=== PATIENT | female | born 1960 | race Caucasian/White ===

== ENCOUNTER 2017-11-30 13:14 | Inpatient (IN) | payer OTHER ==
--- NOTE | 2017-11-30 21:37 | HP ---
Admission [facility] Chief Complaint: alcohol rehabilitation Allergies/Adverse Reactions: Allergies Allergy/AdvReac Type Severity Reaction Status Date / Time oxycodone [Oxycodone] Allergy Verified 11/30/17 20:07 History of Present Illness: 57 yo female with hx of chronic alcohol dependence is here seeking rehabilitation. Reports was naltrexone, but reports the medication is not working and stopped taking the medication, last taken 11/28/17. As patient she was completed detox at [facility] 11/24 - 11/27/17. PMHX: depression and anxiety. Denies suicidal / homicidal ideation or hx of suicide attempt. Denies hx of seizures, reports frequent black outs with last episode 11/23/17. Longest period of sobriety 4 years. Exam Limitations: No Limitations - Ebola screening Have you traveled outside of the country in the last 21 days: No Have you had contact with anyone from an Ebola affected area: No Do you have a fever: No - Review of Systems Constitutional: Loss of Appetite, Changes in sleep EENT: reports: Blurred Vision (wears eyeglasses) Respiratory: reports: No Symptoms reported Cardiac: reports: No Symptoms Reported GI: reports: No Symptoms Reported : reports: No Symptoms Reported Musculoskeletal: reports: Joint Pain (AO right ankle) Integumentary: reports: No Symptoms Reported Neuro: reports: See HPI Endocrine: reports: Increased Thirst Hematology: reports: No Symptoms Reported Psychiatric: reports: Orientated x3, Depressed Other Systems: Reviewed and Negative Patient History - Patient Medical History Hx Anemia: No Hx Asthma: No Hx Chronic Obstructive Pulmonary Disease (COPD): No Hx Cancer: No Hx Cardiac Disorders: No Hx Congestive Heart Failure: No Hx Hypertension: No Hx Hypercholesterolemia: No Hx Pacemaker: No HX Cerebrovascular Accident: No Hx Seizures: No Hx Dementia: No Hx Diabetes: No Hx Gastrointestinal Disorders: No Hx Liver Disease: No Hx Genitourinary Disorders: No Hx Sexually Transmitted Disorders: No Hx Renal Disease (ESRD): No Hx Thyroid Disease: No Hx Human Immunodeficiency Virus (HIV): No (LAST 2012 NEGATIVE, declines testing at this time) Hx Hepatitis C: Yes (daignosed at age 21) Hx Depression: Yes Hx Suicide Attempt: No Hx Bipolar Disorder: No Hx Schizophrenia: No - Patient Surgical History Past Surgical History: Yes Hx Neurologic Surgery: No Hx Cataract Extraction: No Hx Cardiac Surgery: No Hx Lung Surgery: No Hx Breast Surgery: No Hx Breast Biopsy: No Hx Abdominal Surgery: No Hx Appendectomy: Yes (1985) Hx Cholecystectomy: No Hx Genitourinary Surgery: No Hx Section: No Hx Orthopedic Surgery: No Anesthesia Reaction: No (possible oxycontin allergies ) - PPD History Documented Results: Negative w/proof Date: 09/17/17 PPD to be Administered?: No - Reproductive History Patient is a Female of Child Bearing Age (11 -55 yrs old): No Last Menstrual Period: 01/20/11 - Smoking Cessation Smoking history: Never smoked Hx Chewing Tobacco Use: No Initiated information on smoking cessation: No - Substance & Tx. History Hx Alcohol Use: Yes Hx Substance Use: No Substance Use Type: Alcohol Hx Substance Use Treatment: Yes ([facility] 11/24 - 11/27/17.) - Substances Abused Alcohol Route: Oral Frequency: Daily Amount used: 15 shots vodka Age of first use: 8 Date of Last Use: 11/29/17 (reports drank 2 shots of vodka) Family Disease History - Family Disease History Family Disease History: Other: Father (alcoholic), Mother (depression , anxiety, ) Admission Physical Exam [facility] - Physical General Appearance: Yes: Disheveled, Anxious HEENTM: Yes: EOMI, Hearing grossly Normal, Normal ENT Inspection, Normocephalic , Normal Voice, RAMONITA, Pharynx Normal, Tm's normal Respiratory: Yes: Chest Non-Tender, Lungs Clear, Normal Breath Sounds, No Respiratory Distress, No Accessory Muscle Use Neck: Yes: Within Normal Limits Breast: Yes: Breast Exam Deferred Cardiology: Yes: Regular Rhythm, Regular Rate Abdominal: Yes: Normal Bowel Sounds, Non Tender, Flat, Soft Back: Yes: Normal Inspection Musculoskeletal: Yes: full range of Motion, Gait Steady, Pelvis Stable Extremities: Yes: Normal Capillary Refill, Normal Inspection, Normal Range of Motion, Non-Tender Neurological: Yes: 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, Fully Oriented, Alert, Motor Strength 5/5, Normal Response, Depressed Affect Integumentary: Yes: Normal Color, Dry, Warm Lymphatic: Yes: Within Normal Limits - Diagnostic (1) Alcohol dependence Current Visit: Yes Status: Acute Qualifiers: Substance use status: uncomplicated Qualified Code(s): F10.20 - Alcohol dependence, uncomplicated (2) Hepatitis C Current Visit: Yes Status: Chronic Qualifiers: Viral hepatitis chronicity: chronic (3) Depressed mood Current Visit: Yes Status: Acute [facility] Breath Alcohol Content Breath Alcohol Content: 0.017 Inpatient Rehab Admission - Initial Determination Are CD services needed?: Yes Free of communicable disease: Yes Not in need of hospitalization: Yes - Rehab Admission Criteria Previous failed treatment: Yes Poor recovery environment: Yes Comorbidities: Yes Lacks judgement: Yes Patient is meeting Inpatient Rehab admission criteria:: Yes
[2017-11-30] MEDS ORDERED: MAG HYDROX/AL HYDROX/SIMETH 30 ML UNIT-DOSE CUP PO PRN (21:42)
[2017-11-30] MEDS ORDERED: ACETAMINOPHEN 325 MG TABLET (FP) PO PRN (21:42)
[2017-11-30] MEDS ORDERED: MENTHOL/PHENOL 1 EACH UD MM PRN (21:42)
[2017-11-30] MEDS ORDERED: guaiFENesin/D-METHORPHAN HB 10 ML UNIT-DOSE CUPS PO PRN (21:42)
[2017-11-30] MEDS ORDERED: LOPERAMIDE HCL 2 MG CAPSULE PO PRN (21:42)
[2017-11-30] MEDS ORDERED: IBUPROFEN 400 MG TABLET (FP) PO PRN (21:42)
[2017-11-30] MEDS ORDERED: P-EPHED 60MG/TRIPROLIDI 2.5MG TABLET PO PRN (21:42)
[2017-11-30] MEDS: hydrOXYzine PAMOATE 50 MG CAPSULE (FP) PO PRN (23:08)
[2017-11-30] MEDS: MELATONIN 5 MG TABLETS PO PRN (23:08)
[2017-11-30] MEDS: THIAMINE HCL 100 MG TABLET (FP) PO SCH (23:08)
[2017-12-01] MEDS: PRENATAL VITAMINS W/ FOLIC ACID TABLET (FP) PO SCH (10:27)
[2017-12-01] MEDS: lamoTRIgine 100 MG TABLET (FP) PO SCH (12:41)
[2017-12-01] MEDS: NALTREXONE HCL 50 MG TABLET PO SCH (12:41)
[2017-12-01] MEDS: CITALOPRAM HYDROBROMIDE 20 MG TABLET (FP) PO SCH (12:42)
[2017-12-01 14:41] LABS: HEMATOCRIT 41.5 % (32.4-45.2); HEMOGLOBIN 14.1 GM/dL (10.7-15.3); MEAN PLT VOLUME 8.2 fl (7.5-11.1); PLATELET COUNT 286 K/MM3 (134-434); RBC 4.28 M/mm3 (3.60-5.2); RDW 14.5 % (11.6-15.6); WHITE BLOOD COUNT 6.4 K/mm3 (4.0-10.0)
[2017-12-01 14:53] LABS: CHLORIDE 103 mmol/L (98-107); POTASSIUM 4.2 mmol/L (3.5-5.1); SODIUM 137 mmol/L (136-145)
[2017-12-01 15:02] LABS: ALBUMIN 4.1 g/dl (3.4-5.0); ALK PHOS 91 U/L (45-117); ANION GAP 6 (8-16); BILIRUBIN,TOTAL 0.6 mg/dL (0.2-1.0); BLOOD UREA NITROGEN 23 mg/dL (7-18); CALCIUM 8.8 mg/dL (8.5-10.1); CO2 28 mmol/L (21-32); GLUCOSE,RANDOM 121 mg/dL (74-106); SGOT/AST 25 U/L (15-37); SGPT/ALT 24 U/L (12-78); TOT PROT 7.6 g/dl (6.4-8.2)
[2017-12-01] MEDS: THIAMINE HCL 100 MG TABLET (FP) PO SCH (21:31)
[2017-12-01] MEDS: traZODone HCL 100 MG TABLET (FP) PO SCH (21:31)
--- NOTE | 2017-12-02 09:37 | HP ---
Psychiatrist Admission - Data Date of interview: 12/02/17 [facility] Identifying data: This is the second admission to [address] [place] [address] for this 57 years old female ,childless, resides in group home,supported by [facility]. Medical History: Hep C,Chronic arthritis. Psychiatric History: First contact with psychiatrist was in 2011 while in inpatient rehabilitation program to address her depression,anxiety,sleeping difficulties.patient was placed on Trazodone,Celexa.Reports non compliance with psychiatric treatment.Denies previous psychiatric admissions.No history of suicidal attempts.Patient was under my care at [facility] since October 2017.Current medications:Lamictal 100 mg po hs,Trazodone 100 mg po hs and Celexa 40 mg po daily. Physical/Sexual Abuse/Trauma History: denies Vital Signs: Vital Signs - 24 hr 12/02/17 12/02/17 12/02/17 00:30 03:30 07:24 Temperature 97.8 F Pulse Rate 62 Respiratory 18 18 18 Rate Blood Pressure 103/71 Allergies/Adverse Reactions: Allergies Allergy/AdvReac Type Severity Reaction Status Date / Time oxycodone [Oxycodone] Allergy Verified 11/30/17 21:58 Date of last physical exam: 11/30/17 Concur with the findings of this exam: Yes - Substance Abuse/Tx History Hx Alcohol Use: Yes (reports drinking since 8 years old,heavy drinker ,vodka 15- 21 shots daily) Hx Substance Use: No Substance Use Type: Alcohol Hx Substance Use Treatment: Yes (completed this program in 2013) Mental Status Exam - Mental Status Exam Alert and Oriented to: Time, Place, Person Cognitive Function: Grossly Intact Patient Appearance: Well Groomed Mood: Anxious, Hopeful Affect: Mood Congruent, Labile Patient Behavior: Cooperative Speech Pattern: Clear Voice Loudness: Normal Thought Process: Goal Oriented Thought Disorder: Not Present Hallucinations: Denies Suicidal Ideation: Denies Homicidal Ideation: Denies Insight/Judgement: Fair Sleep: Fair Appetite: Good Muscle strength/Tone: Normal Gait/Station: Normal Psychiatric Findings - Problem List ([place] 1, 2,3) (1) Alcohol dependence Current Visit: Yes Status: Chronic Qualifiers: Substance use status: uncomplicated Qualified Code(s): F10.20 - Alcohol dependence, uncomplicated (2) Hepatitis C Current Visit: Yes Status: Chronic Qualifiers: Viral hepatitis chronicity: chronic (3) Chronic arthritis Current Visit: Yes Status: Chronic (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
[2017-12-02] MEDS: NALTREXONE HCL 50 MG TABLET PO SCH (10:15)
[2017-12-02] MEDS: PRENATAL VITAMINS W/ FOLIC ACID TABLET (FP) PO SCH (10:15)
[2017-12-02] MEDS: CITALOPRAM HYDROBROMIDE 20 MG TABLET (FP) PO SCH (10:15)
[2017-12-02] MEDS: lamoTRIgine 100 MG TABLET (FP) PO SCH (10:15)
[2017-12-02 10:18] LABS: URINE APPEARANCE SLCLOUDY; URINE BILIRUBIN NEGATIVE (<2.0 mg/dL); URINE COLOR YELLOW; URINE GLUCOSE (UA) NEGATIVE (NEGATIVE); URINE KETONE NEGATIVE (NEGATIVE); URINE NITRITE NEGATIVE (NEGATIVE); URINE PROTEIN NEGATIVE (NEGATIVE); URINE UROBILINOGEN NEGATIVE mg/dL (0.2-1.0)
[2017-12-02 10:26] LABS: URINE LEUK ESTERASE 3+ (NEGATIVE)
[2017-12-02 10:32] LABS: EPI CELLS FEW /HPF (FEW); URINE MUCUS RARE
--- NOTE | 2017-12-02 12:56 | EKG ---
Test Reason : Blood Pressure : / mmHG Vent. Rate : 071 BPM Atrial Rate : 071 BPM P-R Int : 178 ms QRS Dur : 088 ms QT Int : 412 ms P-R-T Axes : 015 055 049 degrees QTc Int : 447 ms NORMAL SINUS RHYTHM NORMAL ECG WHEN COMPARED WITH ECG OF 15-SEP-2017 15:51, NO SIGNIFICANT CHANGE WAS FOUND Confirmed by MINDY HARDWICK MD ([id number]) on 12/02/2017 12:56:18 PM Referred By: Confirmed By:MINDY HARDWICK MD
--- NOTE | 2017-12-02 13:17 | PN ---
[facility] Progress Note Note: UA SHOWS +LEUKOCYTES BUT NEGATIVE NITRATES. WILL CHECK URINE CULTURE, CONTINUE ORAL FLUIDS AND MONITOR CLINICALLY. Laboratory Tests 12/01/17 12/01/17 12/01/17 08:50 08:50 08:50 WBC 6.4 RBC 4.28 Hgb 14.1 Hct 41.5 MCV 97.0 H MCH 33.0 MCHC 34.0 RDW 14.5 Plt Count 286 MPV 8.2 Sodium 137 Potassium 4.2 Chloride 103 Carbon Dioxide 28 Anion Gap 6 L BUN 23 H Creatinine 1.0 Creat Clearance w eGFR 57.15 Random Glucose 121 H Calcium 8.8 Total Bilirubin 0.6 AST 25 ALT 24 Alkaline Phosphatase 91 Total Protein 7.6 Albumin 4.1 Urine Color Urine Appearance Urine pH Ur Specific [place] Urine Protein Urine Glucose (UA) Urine Ketones Urine Blood Urine Nitrite Urine Bilirubin Urine Urobilinogen Ur Leukocyte Esterase Urine WBC (Auto) Urine RBC (Auto) Ur Epithelial Cells Urine Mucus RPR Titer Nonreactive Hep C Ab Diagnostic Liver Fibrosis Interp 12/01/17 12/02/17 08:50 08:00 WBC RBC Hgb Hct MCV MCH MCHC RDW Plt Count MPV Sodium Potassium Chloride Carbon Dioxide Anion Gap BUN Creatinine Creat Clearance w eGFR Random Glucose Calcium Total Bilirubin AST ALT Alkaline Phosphatase Total Protein Albumin Urine Color Yellow Urine Appearance Slcloudy Urine pH 5.0 D Ur Specific [place] 1.021 Urine Protein Negative Urine Glucose (UA) Negative Urine Ketones Negative Urine Blood Negative Urine Nitrite Negative Urine Bilirubin Negative Urine Urobilinogen Negative Ur Leukocyte Esterase 3+ H Urine WBC (Auto) 71 Urine RBC (Auto) 10 Ur Epithelial Cells Few Urine Mucus Rare RPR Titer Hep C Ab Diagnostic <0.1 Liver Fibrosis Interp
[2017-12-02] MEDS: THIAMINE HCL 100 MG TABLET (FP) PO SCH (21:49)
[2017-12-02] MEDS: traZODone HCL 100 MG TABLET (FP) PO SCH (21:50)
[2017-12-02] MEDS: MELATONIN 5 MG TABLETS PO PRN (21:50)
[2017-12-03] MEDS: CITALOPRAM HYDROBROMIDE 20 MG TABLET (FP) PO SCH (10:20)
[2017-12-03] MEDS: lamoTRIgine 100 MG TABLET (FP) PO SCH (10:20)
[2017-12-03] MEDS: NALTREXONE HCL 50 MG TABLET PO SCH (10:21)
[2017-12-03] MEDS: PRENATAL VITAMINS W/ FOLIC ACID TABLET (FP) PO SCH (10:21)
[2017-12-03] MEDS ORDERED: COLLOIDAL OATMEAL 1 BAR EACH TP PRN (14:20)
--- NOTE | 2017-12-03 14:21 | PN ---
[facility] Progress Note Note: c/o dry skin aveeno soap order
[2017-12-03] MEDS ORDERED: PT OWN MED DRAWER 7, Y5N ONE (15:22)
[2017-12-03] MEDS: THIAMINE HCL 100 MG TABLET (FP) PO SCH (21:37)
[2017-12-03] MEDS: traZODone HCL 100 MG TABLET (FP) PO SCH (21:37)
[2017-12-03] MEDS: MELATONIN 5 MG TABLETS PO PRN (21:38)
[2017-12-03] MEDS: MAGNESIUM HYDROX 2400MG/30ML ORAL SUSPENSION 30 ML CUP PO PRN (21:39)
[2017-12-04] MEDS: CITALOPRAM HYDROBROMIDE 20 MG TABLET (FP) PO SCH (10:28)
[2017-12-04] MEDS: lamoTRIgine 100 MG TABLET (FP) PO SCH (10:28)
[2017-12-04] MEDS: PRENATAL VITAMINS W/ FOLIC ACID TABLET (FP) PO SCH (10:28)
[2017-12-04] MEDS: NALTREXONE HCL 50 MG TABLET PO SCH (10:28)
[2017-12-04] MEDS: MAGNESIUM CITRATE 300 ML BOTTLE PO PRN (10:33)
[2017-12-04] MEDS: traZODone HCL 100 MG TABLET (FP) PO SCH (21:52)
[2017-12-04] MEDS: THIAMINE HCL 100 MG TABLET (FP) PO SCH (21:52)
[2017-12-04] MEDS: MAGNESIUM HYDROX 2400MG/30ML ORAL SUSPENSION 30 ML CUP PO PRN (21:54)
[2017-12-05] MEDS: PRENATAL VITAMINS W/ FOLIC ACID TABLET (FP) PO SCH (10:21)
[2017-12-05] MEDS: CITALOPRAM HYDROBROMIDE 20 MG TABLET (FP) PO SCH (10:22)
[2017-12-05] MEDS: NALTREXONE HCL 50 MG TABLET PO SCH (10:22)
[2017-12-05] MEDS: lamoTRIgine 100 MG TABLET (FP) PO SCH (10:22)
[2017-12-05] MEDS: traZODone HCL 100 MG TABLET (FP) PO SCH (21:41)
[2017-12-05] MEDS: THIAMINE HCL 100 MG TABLET (FP) PO SCH (21:41)
[2017-12-05] MEDS: MELATONIN 5 MG TABLETS PO PRN (21:42)
[2017-12-06] MEDS: CITALOPRAM HYDROBROMIDE 20 MG TABLET (FP) PO SCH (10:43)
[2017-12-06] MEDS: PRENATAL VITAMINS W/ FOLIC ACID TABLET (FP) PO SCH (10:43)
[2017-12-06] MEDS: lamoTRIgine 100 MG TABLET (FP) PO SCH (10:44)
[2017-12-06] MEDS: NALTREXONE HCL 50 MG TABLET PO SCH (10:44)
[2017-12-06] MEDS: traZODone HCL 100 MG TABLET (FP) PO SCH (21:42)
[2017-12-06] MEDS: MELATONIN 5 MG TABLETS PO PRN (21:42)
[2017-12-06] MEDS: THIAMINE HCL 100 MG TABLET (FP) PO SCH (21:42)
[2017-12-07] MEDS: lamoTRIgine 100 MG TABLET (FP) PO SCH (10:39)
[2017-12-07] MEDS: PRENATAL VITAMINS W/ FOLIC ACID TABLET (FP) PO SCH (10:39)
[2017-12-07] MEDS: CITALOPRAM HYDROBROMIDE 20 MG TABLET (FP) PO SCH (10:39)
[2017-12-07] MEDS: NALTREXONE HCL 50 MG TABLET PO SCH (10:40)
[2017-12-07] MEDS: traZODone HCL 100 MG TABLET (FP) PO SCH (21:29)
[2017-12-07] MEDS: MELATONIN 5 MG TABLETS PO PRN (21:29)
[2017-12-07] MEDS: hydrOXYzine PAMOATE 50 MG CAPSULE (FP) PO PRN (21:30)
[2017-12-07] MEDS: THIAMINE HCL 100 MG TABLET (FP) PO SCH (21:30)
[2017-12-08] MEDS: PRENATAL VITAMINS W/ FOLIC ACID TABLET (FP) PO SCH (10:31)
[2017-12-08] MEDS: CITALOPRAM HYDROBROMIDE 20 MG TABLET (FP) PO SCH (10:31)
[2017-12-08] MEDS: lamoTRIgine 100 MG TABLET (FP) PO SCH (10:31)
[2017-12-08] MEDS: NALTREXONE HCL 50 MG TABLET PO SCH (10:31)
[2017-12-08] MEDS: THIAMINE HCL 100 MG TABLET (FP) PO SCH (21:36)
[2017-12-08] MEDS: traZODone HCL 100 MG TABLET (FP) PO SCH (21:36)
[2017-12-08] MEDS: hydrOXYzine PAMOATE 50 MG CAPSULE (FP) PO PRN (21:36)
[2017-12-08] MEDS: MELATONIN 5 MG TABLETS PO PRN (21:37)
[2017-12-09] MEDS: PRENATAL VITAMINS W/ FOLIC ACID TABLET (FP) PO SCH (10:40)
[2017-12-09] MEDS: CITALOPRAM HYDROBROMIDE 20 MG TABLET (FP) PO SCH (10:40)
[2017-12-09] MEDS: NALTREXONE HCL 50 MG TABLET PO SCH (10:41)
[2017-12-09] MEDS: lamoTRIgine 100 MG TABLET (FP) PO SCH (10:41)
[2017-12-09] MEDS: hydrOXYzine PAMOATE 50 MG CAPSULE (FP) PO PRN (21:44)
[2017-12-09] MEDS: traZODone HCL 100 MG TABLET (FP) PO SCH (21:44)
[2017-12-09] MEDS: THIAMINE HCL 100 MG TABLET (FP) PO SCH (21:44)
[2017-12-10] MEDS: CITALOPRAM HYDROBROMIDE 20 MG TABLET (FP) PO SCH (10:26)
[2017-12-10] MEDS: NALTREXONE HCL 50 MG TABLET PO SCH (10:27)
[2017-12-10] MEDS: PRENATAL VITAMINS W/ FOLIC ACID TABLET (FP) PO SCH (10:27)
[2017-12-10] MEDS: lamoTRIgine 100 MG TABLET (FP) PO SCH (10:27)
[2017-12-10] MEDS: traZODone HCL 100 MG TABLET (FP) PO SCH (21:33)
[2017-12-10] MEDS: THIAMINE HCL 100 MG TABLET (FP) PO SCH (21:33)
[2017-12-10] MEDS: MAGNESIUM HYDROX 2400MG/30ML ORAL SUSPENSION 30 ML CUP PO PRN (21:33)
[2017-12-11] MEDS: NALTREXONE HCL 50 MG TABLET PO SCH (10:25)
[2017-12-11] MEDS: PRENATAL VITAMINS W/ FOLIC ACID TABLET (FP) PO SCH (10:25)
[2017-12-11] MEDS: CITALOPRAM HYDROBROMIDE 20 MG TABLET (FP) PO SCH (10:25)
[2017-12-11] MEDS: lamoTRIgine 100 MG TABLET (FP) PO SCH (10:25)
[2017-12-11] MEDS: hydrOXYzine PAMOATE 50 MG CAPSULE (FP) PO PRN (10:25)
[2017-12-11] MEDS: MAGNESIUM CITRATE 300 ML BOTTLE PO PRN (10:26)
[2017-12-11] MEDS: THIAMINE HCL 100 MG TABLET (FP) PO SCH (21:29)
[2017-12-11] MEDS: traZODone HCL 100 MG TABLET (FP) PO SCH (21:29)
[2017-12-11] MEDS: MELATONIN 5 MG TABLETS PO PRN (21:30)
[2017-12-12] MEDS: NALTREXONE HCL 50 MG TABLET PO SCH (10:39)
[2017-12-12] MEDS: PRENATAL VITAMINS W/ FOLIC ACID TABLET (FP) PO SCH (10:39)
[2017-12-12] MEDS: lamoTRIgine 100 MG TABLET (FP) PO SCH (10:39)
[2017-12-12] MEDS: CITALOPRAM HYDROBROMIDE 20 MG TABLET (FP) PO SCH (10:39)
[2017-12-12] MEDS: hydrOXYzine PAMOATE 50 MG CAPSULE (FP) PO PRN (21:34)
[2017-12-12] MEDS: traZODone HCL 100 MG TABLET (FP) PO SCH (21:34)
[2017-12-12] MEDS: THIAMINE HCL 100 MG TABLET (FP) PO SCH (21:34)
[2017-12-13] MEDS: NALTREXONE HCL 50 MG TABLET PO SCH (10:10)
[2017-12-13] MEDS: lamoTRIgine 100 MG TABLET (FP) PO SCH (10:10)
[2017-12-13] MEDS: PRENATAL VITAMINS W/ FOLIC ACID TABLET (FP) PO SCH (10:11)
[2017-12-13] MEDS: CITALOPRAM HYDROBROMIDE 20 MG TABLET (FP) PO SCH (10:11)
[2017-12-13] MEDS: hydrOXYzine PAMOATE 50 MG CAPSULE (FP) PO PRN (21:42)
[2017-12-13] MEDS: traZODone HCL 100 MG TABLET (FP) PO SCH (21:42)
[2017-12-13] MEDS: THIAMINE HCL 100 MG TABLET (FP) PO SCH (21:42)
[2017-12-14 07:31] VITALS: BP 106/71; PULSE 70; TEMP 97.5
--- NOTE | 2017-12-14 09:50 | PN ---
Psychiatric Progress Note Vital Signs: Vital Signs Period Temp Pulse Resp BP Sys/Alexandre Pulse Ox Last 24 Hr 97.5 F 70 17-18 106/71 Date of Session: 12/14/17 Chief Complaint:: Discharge visit HPI: Patient addressed Alcohol dependence comorbid with Alcohol induced mood disorder. ROS: Chronic arthritis,Hep C. Current Medications: Active Medications Generic Name Dose Route Start Last Admin Trade Name Freq PRN Reason Stop Dose Admin Acetaminophen 650 mg 11/30/17 21:42 Tylenol - PO Q4H PRN FEVER Al Hydroxide/Mg Hydroxide 30 ml 11/30/17 21:42 Mylanta Oral Suspension - PO Q6H PRN DYSPEPSIA Citalopram Hydrobromide 40 mg 12/01/17 12:15 12/13/17 10:11 Celexa - PO 40 mg DAILY OLLIE Administration Colloidal Oatmeal 1 applic 12/03/17 14:20 12/03/17 15:32 Aveeno Soap - TP 1 bar DAILY PRN Administration HYGEINE Eucalyptus/Menthol/Phenol/Sorbitol 1 each 11/30/17 21:42 Cepastat Lozenge - MM Q4H PRN SORE THROAT Guaifenesin 10 ml 11/30/17 21:42 Robitussin Dm - PO Q6H PRN COUGH Hydroxyzine Pamoate 50 mg 11/30/17 21:42 12/13/17 21:42 Vistaril - PO 50 mg Q4H PRN Administration AGITATION Ibuprofen 400 mg 11/30/17 21:42 Motrin - PO Q6H PRN Pain level 4-6 Lamotrigine 100 mg 12/01/17 12:15 12/13/17 10:10 Lamictal - PO 100 mg DAILY OLLIE Administration Loperamide HCl 4 mg 11/30/17 21:42 Imodium - PO Q6H PRN DIARRHEA Magnesium Citrate 300 ml 11/30/17 21:42 12/11/17 10:26 Citroma - PO 300 ml Q48H PRN Administration CONSTIPATION Magnesium Hydroxide 30 ml 11/30/17 21:42 12/10/17 21:33 Milk Of Magnesia - PO 30 ml DAILY PRN Administration CONSTIPATION Melatonin 5 mg 11/30/17 22:00 12/11/17 21:30 Melatonin PO 5 mg HS PRN Administration INSOMNIA Naltrexone HCl 50 mg 12/01/17 12:30 12/13/17 10:10 Revia - PO 50 mg DAILY OLLIE Administration Multivit/Folic Acid/Iron 1 tab 12/01/17 10:00 12/13/17 10:11 Vitamins (Sjr) - PO 1 tab DAILY OLLIE Administration Pseudoephedrine/Triprolidine 1 combo 11/30/17 21:42 Actifed - PO TID PRN NASAL CONGESTION Thiamine HCl 100 mg 11/30/17 22:00 12/13/17 21:42 Vitamin B1 - PO 100 mg HS OLLIE Administration Trazodone HCl 100 mg 12/01/17 22:00 12/13/17 21:42 Desyrel - PO 100 mg HS OLLIE Administration Current Side Effect: No Lab tests ordered: No Lab tests reviewed: Yes Provider note:: Patient completed this program today .She has met her treatment goals and will continue to address her issues on outpatient basis.Patient continues to find that current medications:Trazodone 100 mg po hs,Naltrexone 50 mg po daily and Celexa 40 mg po daily help to cope with depession,anxiety,mood instability.Scripts for 30 days provided. Supportive therapy provided focusing on relapose prevention. patient is stable for discharge today. Total face to face time:: 30 Mental Status Exam - Mental Status Exam Alert and Oriented to: Time, Place, Person Cognitive Function: Grossly Intact Patient Appearance: Well Groomed Mood: Hopeful, Euthymic Affect: Appropriate, Mood Congruent Patient Behavior: Cooperative Speech Pattern: Clear Voice Loudness: Normal Thought Process: Goal Oriented Thought Disorder: Not Present Hallucinations: Denies Suicidal Ideation: Denies Homicidal Ideation: Denies Insight/Judgement: Fair Sleep: Fair Appetite: Fair Muscle strength/Tone: Normal Gait/Station: Normal Psychiatric Treatment Plan - Problem List (1) Alcohol dependence Current Visit: Yes Qualifiers: Substance use status: uncomplicated Qualified Code(s): F10.20 - Alcohol dependence, uncomplicated (2) Hepatitis C Current Visit: Yes Qualifiers: Viral hepatitis chronicity: chronic (3) Chronic arthritis Current Visit: Yes (4) Alcohol-induced mood disorder Current Visit: Yes
[2017-12-14] MEDS: CITALOPRAM HYDROBROMIDE 20 MG TABLET (FP) PO SCH (09:59)
[2017-12-14] MEDS: lamoTRIgine 100 MG TABLET (FP) PO SCH (09:59)
[2017-12-14] MEDS: NALTREXONE HCL 50 MG TABLET PO SCH (10:00)
[2017-12-14] MEDS: PRENATAL VITAMINS W/ FOLIC ACID TABLET (FP) PO SCH (10:00)
== END 2017-12-14 10:04 | disposition home or self-care (01) | DRG 772 ==
LOC: YASAS 13:14 → Y3E 22:28
PROVIDERS: ADMIT Psychiatry & Neurology Psychiatry; ATTEND Psychiatry & Neurology Psychiatry
PROC: HZ42ZZZ Group Counseling for Substance Abuse Treatment, Cognitive-Behavioral (ICD-10-PCS; principal; 2017-11-30)
DX: F10.24 Alcohol dependence with alcohol-induced mood disorder (principal); F32.9 Major depressive disorder, single episode, unspecified; B18.2 Chronic viral hepatitis C; M19.90 Unspecified osteoarthritis, unspecified site; L98.8 Other specified disorders of the skin and subcutaneous tissue
CPT/HCPCS: 36415; 80053; 81003; 81015; 85027; 86593; 87086; 93005; 93010

== ENCOUNTER 2017-11-30 18:13 | Emergency (ER) | payer OTHER ==
--- NOTE | 2017-11-30 19:50 | PDOC ---
History of Present Illness - General Stated Complaint: INTOX/WEAKNESS Time Seen by Provider: 11/30/17 19:49 - History of Present Illness Initial Comments: 11/30/17 19:57 Ms. Nelson is a 57 yo female w/ pmh of Anxiety and Depression who presents for evaluation with requests for admission to recovery program for alcohol. Patient reports she has had 15 shots / day for the last 3 months (last drink this morning). She has no other complaints at this time. The patient denies chest pain, shortness of breath, headache and dizziness. Denies fever, chills, nausea, vomit, diarrhea and constipation. Denies dysuria, frequency, urgency and hematuria. Allergies: Oxycodone Past History - Past Medical History Allergies/Adverse Reactions: Allergies Allergy/AdvReac Type Severity Reaction Status Date / Time oxycodone [Oxycodone] Allergy Verified 09/15/17 13:58 Home Medications: Ambulatory Orders Lamotrigine [LaMICtal -] 100 mg PO DAILY 09/15/17 Citalopram Hydrobromide [Celexa -] 20 mg PO DAILY #30 tablet 09/19/17 Citalopram Hydrobromide [Celexa -] 40 mg PO DAILY #30 tablet 11/03/17 Naltrexone HCl 50 mg PO AM #30 tablet 11/03/17 traZODone HCL [Desyrel -] 100 mg PO HS #30 tablet 11/03/17 Anemia: No Asthma: No Cancer: No Cardiac Disorders: No CVA: No COPD: No CHF: No Dementia: No Diabetes: No GI Disorders: No Disorders: No HTN: No Hypercholesterolemia: No Kidney Stones: No Liver Disease: No Seizures: No Thyroid Disease: No - Surgical History Abdominal Surgery: No Appendectomy: Yes (1985) Cardiac Surgery: No Cholecystectomy: No Lung Surgery: No Neurologic Surgery: No Orthopedic Surgery: No - Reproductive History PID: No - Suicide/Smoking/Psychosocial Hx Smoking History: Never smoked Hx Alcohol Use: Yes Drug/Substance Use Hx: No Substance Use Type: Alcohol Hx Substance Use Treatment: No Review of Systems - Review of Systems Comments:: 11/30/17 19:59 GENERAL/CONSTITUTIONAL: No fever or chills. No weakness. HEAD, EYES, EARS, NOSE AND THROAT: No change in vision. No ear pain or discharge. No sore throat. CARDIOVASCULAR: No chest pain or shortness of breath RESPIRATORY: No cough, wheezing, or hemoptysis. GASTROINTESTINAL: No nausea, vomiting, diarrhea or constipation. GENITOURINARY: No dysuria, frequency, or change in urination. MUSCULOSKELETAL: No joint or muscle swelling or pain. No neck or back pain. SKIN: No rash NEUROLOGIC: No headache, vertigo, loss of consciousness, or change in strength/ sensation. ENDOCRINE: No increased thirst. No abnormal weight change HEMATOLOGIC/LYMPHATIC: No anemia, easy bleeding, or history of blood clots. ALLERGIC/IMMUNOLOGIC: No hives or skin allergy. *Physical Exam - Physical Exam Comments: 11/30/17 19:59 GENERAL: Awake, alert, and fully oriented, in no acute distress HEAD: No signs of trauma, normocephalic, atraumatic EYES: PERRLA, EOMI, sclera anicteric, conjunctiva clear ENT: Auricles normal inspection, hearing grossly normal, nares patent, oropharynx clear without exudates. Moist mucosa NECK: Normal ROM, supple, no lymphadenopathy, JVD, or masses LUNGS: No distress, speaks full sentences, clear to auscultation bilaterally HEART: Regular rate and rhythm, normal S1 and S2, no murmurs, rubs or gallops, peripheral pulses normal and equal bilaterally. ABDOMEN: Soft, nontender, normoactive bowel sounds. No guarding, no rebound. No masses EXTREMITIES: Normal inspection, Normal range of motion, no edema. No clubbing or cyanosis. NEUROLOGICAL: Cranial nerves II through XII grossly intact. Normal speech, normal gait, no focal sensorimotor deficits SKIN: Warm, Dry, normal turgor, no rashes or lesions noted. Medical Decision Making - Medical Decision Making 11/30/17 19:59 Ms. Nelson is a 57 yo female w/ pmh as described who presents for admission to alcohol recovery treatment program. Patient clinically stable/sober with normal gain, normal speech, AOx3. Discussed patient with [facility] who will admit for further treatment. Discharging patient to their care for further evaluation. *DC/Admit/Observation/Transfer Diagnosis at time of Disposition: Alcohol dependence Qualifiers: Substance use status: uncomplicated Qualified Code(s): F10.20 - Alcohol dependence, uncomplicated - Discharge Dispostion Disposition: HOME - Referrals Referrals: [facility] [place] [Provider Group] - Patient Instructions Printed Discharge Instructions: DI for Alcohol Abuse Additional Instructions: Please follow-up with [facility] for treatment immediately as discussed. Return to ER if any fever, chills, pain, altered mental status, or other concerning symptoms. Good luck! - Post Discharge Activity
--- NOTE | 2017-11-30 19:57 | PDOC ---
Attending Attestation - Resident Resident Name: Corbin [place] - ED Attending Attestation I have performed the following: I have examined & evaluated the patient, The case was reviewed & discussed with the resident, I agree w/resident's findings & plan, Exceptions are as noted - HPI HPI: 11/30/17 19:55 Pt requesting alcohol detox - Physicial Exam PE: 11/30/17 19:56 *Physical Exam General Appearance: Yes: Appropriately Dressed. No: Apparent Distress, Intoxicated HEENT: positive: EOMI, RAMONITA, Normal ENT Inspection, Normal Voice, TMs Normal, Pharynx Normal. negative: Pale Conjunctivae, Photophobia, Scleral Icterus (R), Scleral Icterus (L) Neck: positive: Trachea midline, Normal Thyroid, Supple. negative: Tender, Rigid, Carotid bruit, Stridor, Lymphadenopathy (R), Lymphadenopathy (L), Thyromegaly Respiratory/Chest: positive: Lungs Clear, Normal Breath Sounds. negative: Chest Tender, Respiratory Distress, Accessory Muscle Use, Labored Respiration, RES, Crackles, Rales, Rhonchi, Stridor, Wheezing, Dullness Cardiovascular: positive: Regular Rhythm, Regular Rate, S1, S2. negative: Edema , JVD, Murmur, Bradycardia, Tachycardia Vascular Pulses: Dorsalis-Pedis (R): 2+, Doralis-Pedis (L): 2+ Gastrointestinal/Abdominal: positive: Normal Bowel Sounds, Flat, Soft. negative : Tender, Organomegaly, Pulsatile Mass, Increased Bowel Sounds, Decreased BS, Distended, Guarding, Rebound, Hernia, Hepatomegaly, Spleenomegaly Lymphatic: negative: Adenopathy, Tenderness Musculoskeletal: positive: Normal Inspection. negative: CVA Tenderness, Decreased Range of Motion Extremity: positive: Normal Capillary Refill, Normal Inspection, Normal Range of Motion, Pelvis Stable. negative: Tender, Pedal Edema, Swelling, Erythema Integumentary: positive: Normal Color, Dry, Warm. 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 negative: EOM Palsy, Facial Droop, Sensory Deficit - Medical Decision Making 11/30/17 19:56 Pt is stable for transport for [facility]
[2017-11-30 20:08] VITALS: BP 92/71; PULSE 89; TEMP 97.1; BMI 26.6
== END 2017-11-30 21:15 | disposition home or self-care (01) ==
LOC: JER 18:13
DX: F10.20 Alcohol dependence, uncomplicated (principal); F41.8 Other specified anxiety disorders
CPT/HCPCS: 99281-25

== ENCOUNTER 2022-01-21 06:16 | Day surgery (SDC) | payer OTHER ==
[2022-01-09 17:01] VITALS: BMI 29.5
[2022-01-21] MEDS ORDERED: KETOROLAC TROMETHAMINE 0.5% EYE DROP 1 DROP DROPS ONE (06:20)
[2022-01-21] MEDS ORDERED: PHENYLEPHRINE 2.5% OPHTH SOLN 15 ML BOTTLE ONE (06:20)
[2022-01-21] MEDS ORDERED: TROPICAMIDE 1% OPHTH SOLN 15 ML BOTTLE ONE (06:20)
[2022-01-21] MEDS ORDERED: OFLOXACIN 0.3% OPHTHALMIC SOLUTION 5 ML BOTTLE ONE (06:20)
[2022-01-21] MEDS ORDERED: CYCLOPENTOLATE HCL 1% OPHTH SOLN 2 ML BOTTLE ONE (06:21)
[2022-01-21 07:04] VITALS: RESP 18
[2022-01-21] MEDS: TROPICAMIDE 1% OPHTH SOLN 15 ML BOTTLE OD SCH ×3 (07:10→07:20)
[2022-01-21] MEDS: PHENYLEPHRINE 2.5% OPHTH SOLN 15 ML BOTTLE OD SCH ×3 (07:10→07:20)
[2022-01-21] MEDS: KETOROLAC TROMETHAMINE 0.5% EYE DROP 1 DROP DROPS OD SCH ×3 (07:10→07:20)
[2022-01-21] MEDS: OFLOXACIN 0.3% OPHTHALMIC SOLUTION 5 ML BOTTLE OD SCH ×3 (07:10→07:20)
[2022-01-21] MEDS: CYCLOPENTOLATE HCL 1% OPHTH SOLN 2 ML BOTTLE OD SCH ×3 (07:10→07:20)
[2022-01-21] MEDS ORDERED: PHENYLEPHRINE/KETOROLAC 4 ML VIAL IO ONE (07:19)
[2022-01-21] MEDS ORDERED: BETAXOLOL HCL 0.25% OPHTHALMIC 10 ML DROPSBTL ONE (07:19)
[2022-01-21] MEDS ORDERED: BACITRACIN/POLYMYXIN OPH OINT 3.5 GM TUBE ONE (07:19)
[2022-01-21] MEDS ORDERED: EPINEPHrine/PF 1 MG/1 ML (1:1,000) AMPULE ONE (07:20)
[2022-01-21] MEDS ORDERED: EPI-SHUGARCAINE (EPINEPHRINE 0.025% & LIDOCAINE-PF 0.75%) 4ML ONE (07:20)
[2022-01-21] MEDS ORDERED: NEO/POLYMYX B SULF/DEXAMETH OPHTHALMIC 5ML BOTTLE ONE (07:20)
[2022-01-21] MEDS ORDERED: BSS (NA/CA/MG/K) BALANCED SALT SOLUTION OPHTH SOLN 15 ML BOTTLE ONE (07:20)
[2022-01-21] MEDS ORDERED: ACETYLCHOLINE 1:100 INTRA-OCUL 20 MG/2 ML KIT ONE (07:20)
[2022-01-21] MEDS ORDERED: TETRACAINE 0.5% OPHTH SOLN 2 ML BOTTLE ONE (07:20)
[2022-01-21] MEDS ORDERED: POVIDONE-IODINE 5% OPHTHALMIC PREP 30 ML SOLUTION ONE (07:20)
[2022-01-21] MEDS ORDERED: MIDAZOLAM HCL 2 MG/2 ML SINGLE DOSE VIAL ONE ×3 (08:18→09:07)
[2022-01-21] MEDS ORDERED: ACETAMINOPHEN 325 MG TABLET (FP) PO PRN (09:28)
[2022-01-21 09:41] VITALS: TEMP 97.8
[2022-01-21 09:53] VITALS: BP 104/62; PULSE 72
== END 2022-01-21 11:21 | disposition home or self-care (01) ==
LOC: FASU 06:16
PROVIDERS: ATTEND Ophthalmology
PROC: 08RJ3JZ Replacement of Right Lens with Synthetic Substitute, Percutaneous Approach (ICD-10-PCS; principal; 2022-01-21 08:46)
DX: H25.9 Unspecified age-related cataract (principal)
CPT/HCPCS: 66984; V2632; J1097

== ENCOUNTER 2022-02-04 09:27 | Day surgery (SDC) | payer OTHER ==
[2022-01-29 18:06] VITALS: BMI 29.5
[2022-02-04] MEDS ORDERED: TROPICAMIDE 1% OPHTH SOLN 15 ML BOTTLE ONE (09:33)
[2022-02-04] MEDS ORDERED: OFLOXACIN 0.3% OPHTHALMIC SOLUTION 5 ML BOTTLE ONE (09:33)
[2022-02-04] MEDS ORDERED: KETOROLAC TROMETHAMINE 0.5% EYE DROP 1 DROP DROPS ONE (09:34)
[2022-02-04] MEDS ORDERED: PHENYLEPHRINE 2.5% OPHTH SOLN 15 ML BOTTLE ONE (09:34)
[2022-02-04] MEDS ORDERED: CYCLOPENTOLATE HCL 1% OPHTH SOLN 2 ML BOTTLE ONE (09:34)
[2022-02-04 10:06] VITALS: RESP 16; TEMP 97.9
[2022-02-04] MEDS: PHENYLEPHRINE 2.5% OPHTH SOLN 15 ML BOTTLE OS SCH ×3 (10:10→10:20)
[2022-02-04] MEDS: TROPICAMIDE 1% OPHTH SOLN 15 ML BOTTLE OS SCH ×3 (10:10→10:20)
[2022-02-04] MEDS: OFLOXACIN 0.3% OPHTHALMIC SOLUTION 5 ML BOTTLE OS SCH ×3 (10:10→10:20)
[2022-02-04] MEDS: CYCLOPENTOLATE HCL 1% OPHTH SOLN 2 ML BOTTLE OS SCH ×3 (10:10→10:20)
[2022-02-04] MEDS: KETOROLAC TROMETHAMINE 0.5% EYE DROP 1 DROP DROPS OS SCH ×3 (10:10→10:20)
[2022-02-04] MEDS ORDERED: NEO/POLYMYX B SULF/DEXAMETH OPHTHALMIC 5ML BOTTLE ONE (11:36)
[2022-02-04] MEDS ORDERED: EPI-SHUGARCAINE (EPINEPHRINE 0.025% & LIDOCAINE-PF 0.75%) 4ML ONE (11:36)
[2022-02-04] MEDS ORDERED: BACITRACIN/POLYMYXIN OPH OINT 3.5 GM TUBE ONE (11:36)
[2022-02-04] MEDS ORDERED: BETAXOLOL HCL 0.25% OPHTHALMIC 10 ML DROPSBTL ONE (11:36)
[2022-02-04] MEDS ORDERED: TETRACAINE 0.5% OPHTH SOLN 2 ML BOTTLE ONE (11:36)
[2022-02-04] MEDS ORDERED: POVIDONE-IODINE 5% OPHTHALMIC PREP 30 ML SOLUTION ONE (11:36)
[2022-02-04] MEDS ORDERED: MIDAZOLAM HCL 2 MG/2 ML SINGLE DOSE VIAL ONE ×2 (11:52→12:10)
[2022-02-04] MEDS ORDERED: ACETAMINOPHEN 325 MG TABLET (FP) PO PRN (12:41)
[2022-02-04 13:20] VITALS: BP 104/67; PULSE 62
== END 2022-02-04 13:55 | disposition home or self-care (01) ==
LOC: FASU 09:27
PROVIDERS: ATTEND Ophthalmology
PROC: 08RK3JZ Replacement of Left Lens with Synthetic Substitute, Percutaneous Approach (ICD-10-PCS; principal; 2022-02-04 12:04)
DX: H25.89 Other age-related cataract (principal)
CPT/HCPCS: 66984; V2632

== ENCOUNTER 2024-04-08 20:22 | Inpatient (IN) | payer OTHER ==
[2024-04-08 21:11] VITALS: BMI 29.6
[2024-04-08] MEDS ORDERED: BENZOCAINE/MENTHOL (CHLORASEPTIC ) LOZENGE MM PRN (21:47)
[2024-04-08] MEDS ORDERED: MAG HYDROX/AL HYDROX/SIMETH 30 ML UNIT-DOSE CUP PO PRN (21:47)
[2024-04-08] MEDS ORDERED: NALOXONE (NARCAN) HCL 4 MG/0.1 ML SPRAY NS PRN (21:47)
[2024-04-08] MEDS ORDERED: guaiFENesin 600 MG TABLET.ER (FP) PO PRN (21:47)
[2024-04-08] MEDS ORDERED: ACETAMINOPHEN 325 MG TABLET (FP) PO PRN (21:47)
[2024-04-08] MEDS ORDERED: IBUPROFEN 400 MG TABLET (FP) PO PRN (21:47)
[2024-04-08] MEDS ORDERED: LOPERAMIDE HCL 2 MG CAPSULE PO PRN (21:47)
[2024-04-08] MEDS ORDERED: BISMUTH SUBSALICYLATE 524 MG/30 ML PO PRN (21:47)
[2024-04-08] MEDS ORDERED: POLYETHYLENE GLYCOL (HEALTHYLAX) 3350 17 GM PACKET PO PRN (21:47)
[2024-04-08] MEDS ORDERED: MAGNESIUM HYDROX 2400MG/30ML ORAL SUSPENSION 30 ML CUP PO PRN (21:47)
[2024-04-08] MEDS ORDERED: DICYCLOMINE HCL 10 MG CAPSULE PO PRN (21:47)
[2024-04-08] MEDS ORDERED: BENZONATATE 200 MG CAPSULE PO PRN (21:47)
[2024-04-08] MEDS: ONDANSETRON *ODT* 4 MG TABLET SL ONE (21:48)
[2024-04-08] MEDS ORDERED: ONDANSETRON *ODT* 4 MG TABLET ONE (21:49)
[2024-04-08] MEDS: MELATONIN 5 MG TABLETS PO SCH (22:34)
[2024-04-08] MEDS: THIAMINE 100 MG TABLET PO SCH (22:34)
[2024-04-08] MEDS ORDERED: MELATONIN 5 MG TABLETS ONE (23:03)
[2024-04-09] MEDS: IBUPROFEN 600 MG TABLET (FP) PO PRN (08:41)
[2024-04-09] MEDS: ONDANSETRON *ODT* 4 MG TABLET SL PRN (08:41)
[2024-04-09] MEDS: PRENATAL VITAMINS W/ FOLIC ACID TABLET (FP) PO SCH (10:28)
[2024-04-09] MEDS: PNEUMOC 20-VAL CONJ-DIP CRM/PF 0.5 ML SYRINGE IM ONE (11:15)
[2024-04-09 12:05] LABS: HEMATOCRIT 40.6 % (32.4-45.2); HEMOGLOBIN 13.7 GM/dL (10.7-15.3); MCH 32.1 pg (25.7-33.7); MCHC 33.8 g/dl (32.0-36.0); MEAN PLT VOLUME 7.8 fl (7.5-11.1); PLATELET COUNT 268 10^3/uL (134-434); RBC 4.28 M/mm3 (3.60-5.2); RDW 13.3 % (11.6-15.6); WHITE BLOOD COUNT 6.4 K/mm3 (4.0-10.0)
[2024-04-09 12:12] LABS: CHLORIDE 106 mmol/L (98-107); POTASSIUM 4.1 mmol/L (3.5-5.1); SODIUM 139 mmol/L (136-145)
[2024-04-09 12:16] LABS: ALBUMIN 3.6 g/dl (3.4-5.0); ANION GAP 9 mmol/L (4-13); BLOOD UREA NITROGEN 14.6 mg/dL (7-18); CALCIUM 8.9 mg/dL (8.5-10.1); CO2 23 mmol/L (21-32); GLUCOSE,RANDOM 98 mg/dL (74-106)
[2024-04-09 12:18] LABS: SGOT/AST 28 U/L (15-37); SGPT/ALT 26 U/L (13-61)
[2024-04-09 12:19] LABS: CREATININE 0.9 mg/dL (0.55-1.3)
[2024-04-09 12:20] LABS: BILIRUBIN,TOTAL 0.9 mg/dL (0.2-1); TOT PROT 6.6 g/dl (6.4-8.2)
[2024-04-09 12:21] LABS: ALK PHOS 70 U/L (45-117)
[2024-04-09] MEDS: TRIMETHOBENZAMIDE HCL 200MG/2ML INJ IM ONE (13:54)
[2024-04-09] MEDS: traZODone HCL 100 MG TABLET (FP) PO SCH (21:37)
[2024-04-10 09:22] VITALS: BP 118/74; PULSE 90; RESP 18; TEMP 97.7
[2024-04-10] MEDS: NALOXONE (NYS OPIOID OVERDOSE PROGRAM) 4 MG/0.1 ML SPRAY NS PRN (12:08)
== END 2024-04-10 11:50 | disposition home or self-care (01) | DRG 773 ==
LOC: YASAS 20:22 → Y6N 22:41
PROVIDERS: ADMIT Allergy & Immunology; ATTEND Surgery
PROC: HZ2ZZZZ Detoxification Services for Substance Abuse Treatment (ICD-10-PCS; principal; 2024-04-08)
DX: F10.20 Alcohol dependence, uncomplicated (principal); F11.20 Opioid dependence, uncomplicated; F12.10 Cannabis abuse, uncomplicated; F32.A Depression, unspecified; B18.2 Chronic viral hepatitis C; Z87.891 Personal history of nicotine dependence
CPT/HCPCS: 36415; 80053; 80305; 80307; 85027; 86780; 90677; 93005; 93010; G0009; Q0162